=== PATIENT | female | born 2000 | race Caucasian/White ===

== ENCOUNTER 2019-10-15 11:52 | Outpatient (CLI) | payer OTHER, SELFPAY ==
[2019-10-15 12:24] LABS: Basophils Percent Auto 0.6 % (0.2-1.2); Eosinophils Percent Auto 0.6 % (0-4.4); Hematocrit 40.8 % (37.0-47.0); Hemoglobin 13.3 g/dL (12.0-15.0); Immature Granulocyte Absolute 0.02 K/mm3 (0.00-0.031); Immature Granulocyte Percent A 0.3 % (0-0.5); Lymphocytes Absolute Auto 1.99 K/mm3 (0.9-3.2); Lymphocytes Percent Auto 28.5 % (18.3-44.2); Mean Corpuscular HGB Conc 32.6 g/dl (32-36); Mean Corpuscular Hemoglobin 29.9 pg (26-34); Mean Corpuscular Volume 91.7 fl (80-100); Mean Platelet Volume 11.1 fl (7.4-10.4); Monocytes Absolute Auto 0.4 K/mm3 (0.1-0.6); Monocytes Percent Auto 6.3 % (2.6-8.5); Neutrophils Absolute Auto 4.5 K/mm3 (1.3-6.7); Neutrophils Percent Auto 63.7 % (45.5-73.1); Platelet Count Result 241 k/mm3 (150-375); Red Blood Count 4.45 M/mm3 (4.2-5.4); Red Cell Distribution Width 12.6 % (11.5-14.5)
[2019-10-15 12:38] LABS: Alanine Aminotransferase 17 U/L (4-35); Albumin Level 4.4 g/dL (3.5-5.1); Alkaline Phosphatase 54 U/L (38-126); Aspartate Amino Transferase 21 U/L (14-36); Bilirubin,Total 0.5 mg/dL (0.2-1.3); Blood Urea Nitrogen 12 mg/dL (7-17); Calcium 8.8 mg/dL (8.4-10.2); Carbon Dioxide 26 mmol/L (22-30); Chloride 103 mmol/L (98-107); Estimated Glomerular Filt Rate > 60; Glucose 97 mg/dL (65-105); Potassium 3.9 mmol/L (3.4-5.0); Sodium 140 mmol/L (137-145)
[2019-10-17 15:22] LABS: EBV Nuclear Ab Antibody <18.00 U/mL (<18.00); EBV Nuclear Ab Interpretation Recent; EBV Virus Capsid Ag IgM Ab <36.00 U/mL (<36.00)
== END 2019-10-15 11:53 | disposition home or self-care (01) ==
PROVIDERS: PCP Family Medicine; Visit Provider Family Medicine
DX: R53.83 Other fatigue (principal)
CPT/HCPCS: 36415; 80053; 84443; 85025; 86664; 86665

== ENCOUNTER 2020-03-22 14:35 | Outpatient (CLI) | payer OTHER, SELFPAY ==
[2020-03-22 16:25] LABS: Hepatitis C Virus Antibody Negative (Negative)
== END 2020-03-22 14:36 | disposition home or self-care (01) ==
PROVIDERS: PCP Family Medicine; Visit Provider Family Medicine
DX: Z11.59 Encounter for screening for other viral diseases (principal)
CPT/HCPCS: 36415; 86803

== ENCOUNTER 2021-09-02 22:45 | Emergency (ER) | payer OTHER, SELFPAY ==
--- NOTE | ~2021-09-02 | CT_ITS ---
EXAMINATION: CT abdomen pelvis w con DATE: 09/03/2021 00:31 INDICATION: Upper abdominal pain. TECHNIQUE: Computed tomography (CT) of the abdomen and pelvis was performed with 100 mL Omnipaque 350 intravenous contrast. Automated exposure control and iterative reconstruction technique were employe d. The dose-length product was 668.50 mGy-cm. COMPARISON: None. FINDINGS: The visualized portions of the lung bases demonstrate minimal atelectasis. No pleural effus ion. The heart size is normal. No pericardial effusion. The liver, gallbladder, spleen, pancreas, adr enal glands, and kidneys are normal. There is a 2.2 cm dominant follicle in right ovary. There are no dilated loops of bowel. The appendix is normal. There are no pathologically enlarged lymph nodes. Th ere is no free intraperitoneal fluid. The bones are unremarkable. IMPRESSION: 1. No etiology for the patient's symptoms. Reviewed, dictated and finalized at location A. R RELATIONS SPECIALIST
[2021-09-02 22:52] VITALS: BP 118/75; PULSE 94; RESP 18; TEMP 36.2; O2SAT 100
--- NOTE | 2021-09-02 23:16 | ED.ABDPAIN ---
HPI - Abdominal Pain General Chief Complaint: Abdominal Pain <Priyanka Holt MD - Last Filed: 09/02/21 23:46> Stated Complaint: ABD PAIN XTD <Priyanka Holt MD - Last Filed: 09/02/21 23:46> Time Seen by Provider: 09/02/21 23:10 <Priyanka Holt MD - Last Filed: 09/02/21 23:46> Source: patient and family <Priyanka Holt MD - Last Filed: 09/02/21 23:46> Mode of arrival: ambulatory <Priyanka Holt MD - Last Filed: 09/02/21 23:46> Limitations: no limitations <Priyanka Holt MD - Last Filed: 09/02/21 23:46> History of Present Illness HPI narrative: Patient presents with intermittent upper abdominal pain for the last 12 months. Got worse over the last 2 months, was seen by her family physicians 1 week ago started on acid supervisor cartography without any improvement. Patient denies any aggravating or relieving factors, denies any fever, chills, nausea, vomiting, diarrhea, constipation, urinary symptoms. Last menstrual. 3 weeks ago, patient denies radiation of pain. Pain at the upper abdomen mainly epigastric area, spasm, aching. Patient denies any history of abdominal surgery. Patient does not smoke or drink or uses drugs. Patient is fully vaccinated for COVID-19. She reports a lot of stress. <Priyanka Holt MD - Last Filed: 09/02/21 23:46> Related Data Home Medications: Home Medications Medication Instructions Recorded Confirmed etonogestrel 68 mg subdermal 1 implant SUBDERMAL ONCE 10/15/19 08/29/21 implant <Priyanka Holt MD - Last Filed: 09/02/21 23:46> Allergies/Adverse Reactions: Allergies Allergy/AdvReac Type Severity Reaction Status Date / Time Penicillins Allergy Unknown rash Verified 09/02/21 22:49 <Priyanka Holt MD - Last Filed: 09/02/21 23:46> Review of Systems Review of Systems: CONSTITUTIONAL: Denies fever, chills, or sweats. EYES: Denies visual changes, redness, or discharge. ENT: Denies rhinorrhea, congestion, sore throat, or otalgia. CARDIOVASCULAR: Denies chest pain, palpitations, or edema. RESPIRATORY: Denies cough or dyspnea. GASTROINTESTINAL: Denies abdominal pain, nausea, vomiting, or diarrhea. GENITOURINARY: Denies dysuria or hematuria. SKIN: Denies rash or itching. MUSCULOSKELETAL: Denies back pain, joint pain, or myalgia. NEUROLOGIC: Denies headache, numbness, or weakness. PSYCHIATRIC: Denies anxiety or depression. <Priyanka Holt MD - Last Filed: 09/02/21 23:46> PMFSH Past Medical History Medical History: Medical History Menorrhagia Obesity (BMI 30.0-34.9) <Priyanka Holt MD - Last Filed: 09/02/21 23:46> Family History Family History: Family History Father Cerebrovascular accident <Priyanka Holt MD - Last Filed: 09/02/21 23:46> Exam Narrative: General appearance: Well-developed, well-nourished Skin: Normal color Head: Normocephalic, nontraumatic Eyes: Clear conjunctiva ENT: Oropharynx normal, ears normal, nose normal Neck: Supple, nontender Chest and respiratory: Airway patent, no respiratory distress, no accessory muscle use Heart: Regular rate/rhythm Abdomen: Soft, nontender, no organomegaly, quiet bowel sounds Vascular: Normal peripheral pulses, normal capillary refill. Musculoskeletal: Normal range of motion, nontender back Neurologic: Alert and oriented ?3, IDENTIFICATION AND RECORDS COMMANDER is normal as tested, no gross motor deficit <Priyanka Holt MD - Last Filed: 09/02/21 23:46> Course Course Emergency Course: Stable <Priyanka Holt MD - Last Filed: 09/02/21 23:46> Patient and family were updated on the results of the labs and CT. <Wyatt Escoto
[2021-09-02] MEDS: ONDANSETRON INJ 4 MG/2 ML VIAL IV PUSH (23:25)
[2021-09-02] MEDS: MORPHINE SULFATE (*CRX) 4 MG/ML INJ IV PUSH (23:26)
[2021-09-02 23:28] VITALS: BP 125/81; PULSE 76; RESP 14; O2SAT 100
[2021-09-02] MEDS: SODIUM CHLORIDE 0.9% IV 1,000 ML 999 ML IV CONT (23:28)
[2021-09-02 23:30] LABS: Basophils Absolute Auto 0.1 K/mm3 (0.0-0.1); Basophils Percent Auto 0.5 % (0.2-1.2); Eosinophils Absolute Auto 0.1 K/mm3 (0-0.3); Eosinophils Percent Auto 0.6 % (0-4.4); Hematocrit 41.4 % (37.0-47.0); Immature Granulocyte Absolute 0.05 K/mm3 (0.00-0.031); Immature Granulocyte Percent A 0.3 % (0-0.5); Lymphocytes Absolute Auto 5.19 K/mm3 (0.9-3.2); Lymphocytes Percent Auto 35.7 % (18.3-44.2); Mean Corpuscular HGB Conc 33.8 g/dl (32-36); Mean Corpuscular Volume 91.6 fl (80-100); Mean Platelet Volume 10.4 fl (7.4-10.4); Monocytes Absolute Auto 0.9 K/mm3 (0.1-0.6); Monocytes Percent Auto 6.5 % (2.6-8.5); Neutrophils Absolute Auto 8.2 K/mm3 (1.3-6.7); Neutrophils Percent Auto 56.4 % (45.5-73.1); Platelet Count Result 276 k/mm3 (150-375); Red Blood Count 4.52 M/mm3 (4.2-5.4); Red Cell Distribution Width 12.9 % (11.5-14.5); White Blood Count 14.5 K/mm3 (4.5-10.0)
[2021-09-02 23:32] LABS: Add Urine Microscopic? NO; Appearance Urine Clear (Clear); Bilirubin Urine Negative (Negative); Blood Urine Negative (Negative); Color Urine Yellow (Yellow); Glucose Urine UA Negative (Negative); Ketones Urine Negative (Negative); Leukocyte Esterase Ur Negative LEU/UL (Negative); Nitrate Urine Negative (Negative); Protein Urine Negative (Negative); Specific Grav Ur 1.014 (1.001-1.035); Urobilinogen Urine Negative mg/dL (<2.0)
[2021-09-02 23:42] LABS: Alanine Aminotransferase 19 U/L (4-35); Albumin Level 4.5 g/dL (3.5-5.1); Alkaline Phosphatase 63 U/L (38-126); Anion Gap 11 mmol/L (8-16); Aspartate Amino Transferase 22 U/L (14-36); Bilirubin,Total 0.2 mg/dL (0.2-1.3); Blood Urea Nitrogen 11 mg/dL (7-17); Calcium 9.2 mg/dL (8.4-10.2); Carbon Dioxide 23 mmol/L (22-30); Chloride 105 mmol/L (98-107); Estimated CRCL calculation 102 ml/min; Estimated Glomerular Filt Rate > 60; Glucose 101 mg/dL (65-110); Lipase 95 U/L (23-300); Potassium 3.7 mmol/L (3.4-5.0); Sodium 139 mmol/L (137-145)
[2021-09-03 01:36] VITALS: BP 109/73; PULSE 81; RESP 16; O2SAT 100
== END 2021-09-03 01:39 | disposition home or self-care (01) ==
PROVIDERS: Emergency Provider Emergency Medicine; PCP Family Medicine
DX: K59.00 Constipation, unspecified (principal); R10.84 Generalized abdominal pain
CPT/HCPCS: 36415; 74177; 80053; 81003; 81025; 83690; 85025; 96361; 96374; 96375; 99284; J2270; J2405; J7030; Q9967

== ENCOUNTER 2022-05-03 21:25 | Emergency (ER) | payer OTHER, SELFPAY ==
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
[2022-05-03 21:34] VITALS: BP 116/67; PULSE 85; RESP 18; TEMP 36.7; O2SAT 98
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
[2022-05-03 22:30] VITALS: BP 124/81; PULSE 78; RESP 16; O2SAT 99
== END 2022-05-03 22:31 | disposition home or self-care (01) ==
LOC: CHSED 22:23
PROVIDERS: Emergency Provider Emergency Medicine; PCP Family Medicine
DX: S13.4XXA Sprain of ligaments of cervical spine, initial encounter (principal); V89.2XXA Person injured in unspecified motor-vehicle accident, traffic, initial encounter
CPT/HCPCS: 72125; 99284

== ENCOUNTER 2022-05-16 22:22 | Emergency (ER) | payer OTHER, SELFPAY ==
--- NOTE | ~2022-05-16 | XR_ITS ---
EXAMINATION: XR chest 2V DATE: 05/16/2022 22:50 INDICATION: Chest pain TECHNIQUE: PA and lateral views of the chest are obtained. COMPARISON: None available FINDINGS: The lungs are free of acute opacities. No pleural effusion or pneumothorax. The cardiomedia stinal silhouette is normal. The visualized bones and soft tissues are unremarkable. IMPRESSION: 1. No acute cardiopulmonary abnormality. Reviewed, dictated and finalized at location B.
[2022-05-16 22:25] VITALS: BP 97/66; PULSE 79; RESP 20; TEMP 36.3; O2SAT 100
--- NOTE | 2022-05-16 22:26 | ECG_ITS ---
Measurements Intervals [place] Rate: 79 P: 55 KS: 176 QRS: 52 QRSD: 85 T: 44 QT: 358 QTc: 413 Interpretive Statements SINUS RHYTHM NORMAL ECG NO PREVIOUS ECG AVAILABLE FOR COMPARISON Electronically Signed On 05-17-2022 6:34:52 CDT by Lewis Wyatt D.O.
[2022-05-16 22:41] LABS: Basophils Absolute Auto 0.1 K/mm3 (0.0-0.1); Basophils Percent Auto 0.5 % (0.2-1.2); Eosinophils Absolute Auto 0.1 K/mm3 (0-0.3); Eosinophils Percent Auto 0.6 % (0-4.4); Hematocrit 41.7 % (37.0-47.0); Immature Granulocyte Absolute 0.04 K/mm3 (0.00-0.031); Immature Granulocyte Percent A 0.3 % (0-0.5); Lymphocytes Absolute Auto 5.07 K/mm3 (0.9-3.2); Lymphocytes Percent Auto 38.6 % (18.3-44.2); Mean Corpuscular HGB Conc 33.6 g/dl (32-36); Mean Corpuscular Hemoglobin 30.6 pg (26-34); Mean Corpuscular Volume 91.2 fl (80-100); Mean Platelet Volume 10.2 fl (7.4-10.4); Monocytes Absolute Auto 0.9 K/mm3 (0.1-0.6); Monocytes Percent Auto 6.7 % (2.6-8.5); Neutrophils Percent Auto 53.3 % (45.5-73.1); Platelet Count Result 289 k/mm3 (150-375); Red Blood Count 4.57 M/mm3 (4.2-5.4); Red Cell Distribution Width 12.9 % (11.5-14.5); White Blood Count 13.2 K/mm3 (4.5-10.0)
[2022-05-16 22:57] LABS: INR 0.9; Prothrombin Time 12.2 Seconds (11.1-14.7)
[2022-05-16 22:58] LABS: Alanine Aminotransferase 21 U/L (6-35); Albumin Level 4.7 g/dL (3.5-5.1); Alkaline Phosphatase 61 U/L (38-126); Anion Gap 13 mmol/L (8-16); Aspartate Amino Transferase 23 U/L (14-36); Bilirubin,Total 0.3 mg/dL (0.2-1.3); Blood Urea Nitrogen 11 mg/dL (7-17); Calcium 8.8 mg/dL (8.4-10.2); Carbon Dioxide 24 mmol/L (22-30); Chloride 103 mmol/L (98-107); Estimated CRCL calculation 85 ml/min; Estimated Glomerular Filt Rate > 60; Glucose 99 mg/dL (65-110); Lipase 105 U/L (23-300); Partial Thromboplastin Time 29.6 SECONDS (22.3-36.8); Potassium 3.8 mmol/L (3.4-5.0); Sodium 140 mmol/L (137-145)
[2022-05-16 23:09] LABS: Troponin I < 0.012 ng/mL (0.000-0.034)
[2022-05-16 23:14] VITALS: BP 111/91; O2SAT 99
--- NOTE | 2022-05-17 00:32 | PC.NURSE ---
Dr. Harrison at bedside to assess pt.
--- NOTE | 2022-05-17 00:38 | ED.CHESTPAIN ---
HPI - Chest Pain General Chief Complaint: Chest Pain Stated Complaint: chest pain Time Seen by Provider: 05/16/22 23:39 History of Present Illness HPI narrative: This is a 22-year-old female who denies past medical history, who presents to the emergency department complaining of burning sensation in the chest for the past 2 weeks. She states pain is approximately 5 out of 10, does not radiate and is associated with intermittent tingling of the fingers of the left arm. She states the pain worsens with lying flat and somewhat improves with sitting forward. It is not associated with any weakness, nausea, vomiting, shortness of breath lightheadedness. Related Data Home Medications Medication Instructions Recorded Confirmed etonogestrel 68 mg subdermal 1 implant subdermal ONCE 10/15/19 09/12/21 implant (Nexplanon) Allergies Allergy/AdvReac Type Severity Reaction Status Date / Time Penicillins Allergy Unknown Verified 05/04/22 07:20 Review of Systems Review of Systems: CONSTITUTIONAL: Denies fever, chills, or sweats. ENT: Denies rhinorrhea, congestion, sore throat, or otalgia. CARDIOVASCULAR: Chest pain denies palpitations, or edema. RESPIRATORY: Denies cough or dyspnea. GASTROINTESTINAL: Denies abdominal pain, nausea, vomiting, or diarrhea. GENITOURINARY: Denies dysuria or hematuria. SKIN: Denies rash or itching. MUSCULOSKELETAL: Denies back pain, joint pain, or myalgia. NEUROLOGIC: Denies headache, numbness, dizziness, or weakness. PSYCHIATRIC: Denies anxiety or depression. PMFSH Past Medical History Medical History (Updated 05/17/22 @ 01:34 by Isak Harrison MD) Menorrhagia No active medical problems Obesity (BMI 30.0-34.9) Surgical History Surgical History (System 05/04/22 @ 07:20 by Froylan Dong) No pertinent past surgical history Family History Family History (System 05/04/22 @ 07:20 by Froylan Dong) Father Cerebrovascular accident Social History Social History (System 05/04/22 @ 07:20 by Froylan Dong) Smoking status: Never smoker Alcohol intake: current Alcohol use details: Rare Substance use: never Exam Narrative: GENERAL: Well-development, well-nourished, and in no acute distress. HEAD: Normocephalic, atraumatic. EYES: PERRLA and EOMI. ENT: Nares clear, no rhinorrhea or epistaxis. Mucous membranes moist. Oropharynx without tonsillar hypertrophy exudate or other lesions. NECK: Supple. No adenopathy or masses. No carotid bruits or JVD CHEST: Clear to auscultation. No respiratory distress. No wheezes rales or rhonchi HEART: Regular rate and rhythm. No murmur heard. Normal peripheral pulses. No reproducible chest pain on palpation ABDOMEN: Soft, nontender, nondistended, normal active bowel sounds. EXTREMITIES: Normal range of motion. No edema. SKIN: Warm, dry, no rash. NEURO: No focal deficits. Alert and oriented x3. PSYCH: Normal mood and affect. Course Course Emergency Course: 00:43 - Patient symptoms are more consistent with esophageal reflux as opposed to ACS. ECG is unremarkable, initial troponin is negative. White blood cell count is elevated to 13 but CBC and chemistries are otherwise unremarkable. Chest x-ray is nonconcerning for pneumothorax, pleural effusion, or other acute cardiopulmonary abnormality Her HEART score is 0. We will treat with a GI cocktail and reassess. 01:33 - Reassessed patient. She states she has not felt significant improvement but is comfortable with discharge. Will discharge with antacids and primary care follow-up. The patient voiced understanding is comfortable with the plan. All questions answered to her satisfaction. Vital Signs Vital signs: Vital Signs Temperature 97.3 F L 05/16/22 22:25 Pulse Rate 79 05/16/22 22:25 Respiratory Rate 20 05/16/22 22:25 Blood Pressure 97/66 L 05/16/22 22:25 Pulse Oximetry 100 05/16/22 22:25 Temperature 97.3 F L 05/16/22 22:25 Pulse Rate 79 05/16/22 22:25 Respiratory
[2022-05-17] MEDS: FAMOTIDINE 20 MG TABLET PO (00:59)
[2022-05-17] MEDS: BELLADONNA ALK/PHENOB ELIX 10 ML, MAG HYDROX/ALUMINUM HYD/SIMETH 30 ML, LIDOCAINE HCL 2... PO (01:00)
[2022-05-17] MEDS: ASPIRIN 81 MG CHEWABLE TABLET 324 MG PO (01:17)
[2022-05-17 01:58] VITALS: BP 98/79; PULSE 88; RESP 16; O2SAT 98
== END 2022-05-17 02:03 | disposition home or self-care (01) ==
PROVIDERS: Emergency Provider Preventive Medicine Aerospace Medicine; PCP Family Medicine
DX: R07.9 Chest pain, unspecified (principal); K21.9 Gastro-esophageal reflux disease without esophagitis
CPT/HCPCS: 36415; 71046; 80053; 81025; 83690; 84484; 85025; 85610; 85730; 93005; 99284; A9270

== ENCOUNTER 2024-08-25 12:25 | Outpatient (CLI) | payer OTHER, SELFPAY ==
--- NOTE | ~2024-08-25 | CT_ITS ---
EXAMINATION: CTA chest abdomen DATE: 08/25/2024 13:05 INDICATION: Family history of ischemic heart disease. TECHNIQUE: Computed tomographic angiography (CTA) of the chest end abdomen was performed without and with 100 mL Omnipaque-350 intravenous contrast. Sagittal and coronal reconstructed images were create d. Automated exposure control and iterative reconstruction technique were employed. The dose-length p roduct was 431.44 mGy-cm. COMPARISON: CT abdomen and pelvis dated 09/03/2021 FINDINGS: Chest: Lungs are clear with no pneumonia, pulmonary edema, pleural effusion or pneumothorax. Heart size is n ormal. No pericardial effusion. Thoracic aorta is normal in caliber with no dissection. Small amount of residual thymic tissue in the anterior mediastinum. No pathologically enlarged thoracic lymphadeno jennifer. Mild thoracic spondylosis. Abdomen: Liver, gallbladder, spleen, pancreas, bilateral adrenal glands and kidneys are normal. Visualized bow els are unremarkable with no obstruction. No pathologically enlarged abdominal lymphadenopathy. Abdom inal aorta is normal in caliber with no dissection. Mild lumbar spondylosis. IMPRESSION: 1. Unremarkable CT head angiogram of the chest and abdomen with normal aorta. Reviewed, dictated and finalized at location B. MACHINE TENDER
== END 2024-08-25 12:26 | disposition home or self-care (01) ==
PROVIDERS: PCP Family Medicine; Visit Provider Family Medicine
DX: Z82.49 Family history of ischemic heart disease and other diseases of the circulatory system (principal)
CPT/HCPCS: 71275; 74175; Q9967

== ENCOUNTER 2025-08-09 17:45 | Observation (INO) | payer OTHER, SELFPAY ==
[2025-08-09] VITALS (16 sets, daily range): BP systolic 101; BP diastolic 58; PULSE 30–105; O2SAT 87–99; BMI 31.4
[2025-08-09 18:43] LABS: Add Urine Microscopic? NO; Appearance Urine Clear (Clear); Glucose Urine UA Negative (Negative); Leukocyte Esterase Ur Negative LEU/UL (Negative); Nitrate Urine Negative (Negative); Specific Grav Ur 1.003 (1.001-1.035)
--- NOTE | 2025-08-09 19:25 | OBADM ---
This patient, Destinee Redding, admitted to the OB room [facility] for observation. Patient/family oriented to hospital policies and general routines including ID bracelet, bed and alarms, visiting hours, pain management, procedures, bathroom and other care routines, personal items, smoking policy, room service/diet, and visiting hours. Patient/Family are encouraged to report perceived risks to care and to ask questions if they do not understand what they are told or what they should do.
--- NOTE | 2025-08-09 19:37 | PC.NURSE ---
Pt presented to triage with c/o abdominal pain and cramping that she rated 7/10 at its worse that started around 0700. Pt denies vaginal bleeding, LOF, or recent intercourse. +FM. FHT reactive and reassuring, no decels. No ctx via toco or palpation. No CVA tenderness. Urine WNL. Tylenol and Flexeril offered, pt declined both. Pt educated on round ligament pain and recommended to wear maternity belt. labor precautions also given. Pt verbalized understanding is agreeable for discharge. Shahid Campos CNM notified and ok with pt discharge.
--- NOTE | 2025-08-11 07:54 | PM.OBTRLD ---
OB - Triage/Final Diagnosis Visit Information Date of evaluation: 08/09/25 Reason for evaluation: other (abd pain) Comments/Additional reasons for admission: I have assessed the risk for this patient, Destinee Redding, and determined that she would benefit from observation care. Evaluation Laboratory results: Laboratory Tests 08/09/25 18:29 Urine Color Yellow Urine Appearance Clear Urine pH 6.5 Ur Specific [place] 1.003 Urine Protein Negative Urine Glucose (UA) Negative Urine Ketones Negative Ur Blood (Man) Negative Urine Nitrate Negative Urine Bilirubin Negative Urine Urobilinogen 0.2 Leukocyte Esterase Rfl Negative
== END 2025-08-09 19:33 | disposition home or self-care (01) ==
PROVIDERS: Advanced Practice Midwife; Admitting Provider Obstetrics & Gynecology; PCP Family Medicine; Visit Provider Obstetrics & Gynecology
DX: O26.892 Other specified pregnancy related conditions, second trimester (principal); Z3A.28 28 weeks gestation of pregnancy
CPT/HCPCS: 81003; G0378; G0379

== ENCOUNTER 2025-08-22 21:05 | Outpatient (CLI) | payer OTHER, SELFPAY ==
[2025-08-22 21:30] VITALS: BP 94/56; PULSE 88
[2025-08-22 21:45] VITALS: BP 100/54; PULSE 92
== END 2025-08-22 21:55 | disposition home or self-care (01) ==
LOC: ANHOBOP 21:28 → ANHLDR 08-23 02:22
PROVIDERS: PCP Family Medicine; Visit Provider Obstetrics & Gynecology
DX: O36.8190 Decreased fetal movements, unspecified trimester, not applicable or unspecified (principal); Z37.9 Outcome of delivery, unspecified; Z3A.00 Weeks of gestation of pregnancy not specified
CPT/HCPCS: 59025; 99199